=== PATIENT | female | born 1935 | race Caucasian/White ===

== ENCOUNTER 2016-09-16 17:34 | Inpatient (IN) | payer MEDICARE ==
[~2016-09-16] VITALS: Ht 31.2 cm; Wt 45.7 kg
[~2016-09-16 17:34] MED LIST: ASCORBIC ACID250 MG PO; FEOSOL-DPS325 MG PO; FIORICET DPS1 TAB PO; FLOVENT DISKUS50 MCG NS; NEURONTIN DPS300 MG PO; OCEAN NASAL MIS45 ML NS; SENOKOT S1 TAB PO; SYNTHROID DPS0.05 MG PO; TYLENOL DPS325 MG PO; ULTRAM DPS50 MG PO
--- NOTE | 2016-09-18 09:10 | ER ---
ADMIT: 09/16/2016 RM/LOC: 404 [facility] MR#: [id number] [address] [address] ANDREY PIRES [address] [place] [address] Emergency Room Report SEX: F AGE: 81 : 1935 DATE: 09/16/2016 TIME: 1734 Please refer to my T-sheet for complete H and P. HISTORY OF PRESENT ILLNESS: Briefly, the patient is an 81-year-old who comes in with general weakness for 2 to 3 days. 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 She is currently on chemotherapy. She has had a subdural bleed in the past, but she just has not been able to eat, not feeling well, and feeling chilled. PHYSICAL EXAMINATION: VITAL SIGNS: Her blood pressure is 119/53, pulse 102, respirations 21, temp 100.6. GENERAL: She is cachectic. HEENT: Pale conjunctiva. LUNGS: Clear. HEART: Regular. ABDOMEN: Soft, mildly tender. No rebound or guarding. SKIN: No rash. NEURO: She is weak, but no focal findings. EMERGENCY DEPARTMENT COURSE: We did all sepsis pathway. Gave her sepsis fluids per protocol, sent 2 blood cultures. Her chest x-ray revealed no obvious infiltrate. CBC was normal except white count 11, hemoglobin 9.6, platelets 111. Chemistries normal except potassium 3.2. Lipase was normal. UA normal. Cardiac enzymes negative. PT was 12.3, PTT 32.4, INR 1.18, lactate was 1.1. EKG was sinus rhythm, rate 96, no changes. She had some diarrhea. She did not have any here that we could send. I went ahead and gave her vancomycin and metronidazole on the sepsis protocol. I talked to Dr. Lake, she will be admitted. ASSESSMENT: 1. Fever. 2. General weakness. 3. Anorexia. 4. Oncology patient. 5. Diarrhea. 6. Early sepsis. PLAN: Admit to the hospital under the care of Dr. Lake. Tyson Kern MD/ vanessa JOB #: [id number] CC: Chelsie Hernandez MD, Attending Physician Chelsie Hernandez MD, Family Physician
--- NOTE | 2016-09-19 13:25 | HP ---
ADMIT: 09/16/2016 RM/LOC: 404 [facility] MR#: [id number] [id number] [facility] [address] [place], [place] [address] ANDREY PIRES [address] [place] [address] History and Physical SEX: F AGE: 81 : 1935 DATE OF SERVICE: CHIEF COMPLAINT: Fever and weakness. HISTORY OF PRESENT ILLNESS: The patient is an 81-year-old, white female, who presented to the emergency room with increasing weakness, fatigue, fever, shortness of breath, abdominal pain, nausea, and some diarrhea. She had a hospitalization in July for subdural hematoma, and during that stay and recovery, was noted to have a significant lymphadenopathy, and biopsy showed an adenocarcinoma likely lung primary. The patient did have some complications from that including significant swelling of the neck due to some compression of the subclavian vein. She was transferred to [facility] urgently later in July for some treatment of that and did improve somewhat. She also has known peripheral pulmonary emboli, but due to her subdural hematoma, was unable to undergo anticoagulation for that. The patient has been seeing Dr. Grimaldo here in [place] and had started receiving chemotherapy. She had some significant weakness and pancytopenia after her last round, so has not received chemo for the last week. Her counts have recovered somewhat, but unfortunately weakness continued to get worse, and she was running a fever in the ER of 100.4. She denies any real focal source. She has not had much of a cough. Diarrhea is obviously ongoing, so might be a significant source. No dysuria, but she has had some trouble emptying her bladder. No other congestion or sore throat. PAST MEDICAL HISTORY: Again, recently diagnosed with adenocarcinoma of the lung that has been metastatic, mediastinal and supraclavicular lymph nodes, and had brain metastases on MRI done at [facility]. She is undergoing palliative chemotherapy. Also, has known small peripheral pulmonary emboli, and a recent subdural hematoma, and was diagnosed with C. diff during her last hospitalization. She has had hypothyroidism and osteoporosis on a chronic basis. Otherwise, was in fairly good health until her hospitalization in July. MEDICATIONS: 1. Fluticasone nasal spray one spray in each nostril daily. 2. Ultram 50 mg q.6 hours p.r.n. 3. Levothyroxine 50 mcg daily. 4. Tylenol 325 mg 1 to 2 every 4 to 6 hours as needed. ALLERGIES: NO KNOWN DRUG ALLERGIES. FAMILY HISTORY: Father and two brothers had coronary artery disease. No other major medical issues in the family. SOCIAL HISTORY: The patient has been living at home alone since short-stay skilled care at [facility] after her last hospitalization. She does have home health care and family members who frequently check on her, but does not have a 24-hour care. She is and up until July was caring for her at home but he has been placed in skilled care unit as well. She does ADMIT: 09/16/2016 RM/LOC: 404 [facility] MR#: [id number] [address] [address] ANDREY PIRES [address] [place] [address] History and Physical SEX: F AGE: 81 : 1935 have five children. Former tobacco use history. Denies any alcohol use. REVIEW OF SYSTEMS: CONSTITUTIONAL: Just the fevers, chills, and generalized weakness. HEENT: Denies headache. No vision changes. She has chronic congestion, but no sore throat. CARDIAC: No chest pain or palpitations. RESPIRATORY: Feels a little short of breath with activity. No cough. GI: Has had some mild abdominal pain and cramping. Mild nausea and does have quite a bit of diarrhea. No blood in the stools. : Does not feel like she is emptying her bladder well but no dysuria or flank pain or hematuria. MUSCULOSKELETAL: Just feels generally weak. No joint aches or pains. Rest of the review of systems is negative. PHYSICAL EXAMINATION: VITAL SIGNS: Temp was 100.4 in the ER, it is down to 97.4 now; blood pressure 105/52; pulse 92; respirations 16; sats 95% on room air. GENERAL: The patient is alert and oriented x3 and in no acute distress. She is tired and thin and frail-appearing. HEENT: Head looks atraumatic and normocephalic. Sclerae are clear. Pupils are round and reactive. Nares are patent. Oropharynx looks moist. NECK: Supple with still some residual lymphadenopathy. HEART: Regular in rate and rhythm without murmurs. LUNGS: Sound clear to auscultation bilaterally. ABDOMEN: Soft, nondistended, nontender with good bowel sounds. No masses are palpable. EXTREMITIES: Have trace edema bilaterally. She has 2+ dorsalis pedis pulses. No skin rashes are noted. She is generally weak but no other focal neurologic deficits are noted. LABORATORY AND IMAGING DATA: White count on admission was 11.0, hemoglobin 9.6, platelets 111, and she had 57 bands. Procalcitonin was 0.27, and lactic acid was normal at 1.1. She was mildly low in potassium at 3.2, albumin is 2.2. Cardiac enzymes were negative. Chest x-ray, showed no acute change. Head CT, showed some interval resolution of the subdural hematoma, although mild increase in the size of the lateral ventricles. Her UA was also normal. ASSESSMENT: 1. Metastatic adenocarcinoma of the lung on palliative chemotherapy with some pancytopenia due to her chemo. 2. Fever with recent neutropenia. 3. Diarrhea with history of Clostridium difficile colitis. 4. Anemia. 5. Moderate protein-calorie malnutrition. 6. Generalized weakness and malaise. ADMIT: 09/16/2016 RM/LOC: [address] [place] [address] MR#: [id number] [address] [address] ANDREY PIRES [address] [place] [address] History and Physical SEX: F AGE: 81 : 1935 7. Fatigue. 8. Hypothyroidism. 9. Osteoporosis. 10.Hypokalemia. 11.Urinary retention. PLAN: We will continue with IV cefepime for now for her neutropenic fever and await cultures. We will recheck C. diff and if positive, we will resume oral vancomycin for now. We will get Social Work involved as she states she cannot handle things at home anymore and will need placement. We will get PT/OT and Speech Therapy to see her as well. We will have Oncology follow along and make any changes as needed based on her hospital course. Chelsie Hernandez MD/ vanessa JOB #: [id number] CC: Chelsie Hernandez, Attending Physician Chelsie Hernandez, Family Physician
[2016-09-25] MEDS ORDERED: FLONASE 0.05% D16 GM NS (14:01)
[2016-09-25] MEDS ORDERED: MAALOX DPS30 ML PO (14:02)
[2016-09-25] MEDS ORDERED: HYDROCODON-ACE1 EAC4 PO (14:02)
[2016-09-25] MEDS ORDERED: DELTASONE DPS5 MG PO (14:03)
[2016-09-25] MEDS ORDERED: NYSTATIN100000 UNI PO (14:04)
--- NOTE | 2016-10-12 06:29 | DS ---
ADMIT: 09/16/2016 RM/LOC: 404 [facility] MR#: [id number] [address] [address] ANDREY PIRES [address] [place] [address] General Discharge Summary SEX: F AGE: 81 : 1935 ADMISSION DATE: 09/16/2016 DISCHARGE DATE: 09/24/2016 FINAL DIAGNOSES: 1. Neutropenic fever. 2. Systemic inflammatory response syndrome criteria with possible infection as a cause. 3. Metastatic adenocarcinoma of the lung. 4. Diarrhea. 5. Anemia of chronic disease. 6. Moderate protein-calorie malnutrition. 7. Generalized weakness and malaise. 8. Fatigue. 9. Hypothyroidism. 10.Osteoporosis. 11.Hypokalemia. 12.Urinary retention. 13.Pleural effusions. REASON FOR ADMISSION: The patient is an 81-year-old white female, who has been undergoing chemotherapy for metastatic adenocarcinoma of the lung. She had developed some low white blood cell counts and had received medications appropriately for that through Oncology, but in the mean time, did develop some increasing weakness and spiked a temp of 100.4. She came to the emergency room and was admitted on IV cefepime pain. Did have a mildly elevated white count on admission that was up to 11,000. Her hemoglobin on admission was 9.6 and procalcitonin was 0.27. Lactic acid was normal at 1.1. HOSPITAL COURSE: The patient was admitted and did receive IV fluids for the first couple of days until urine output improved. She was also started on some IV Decadron. PT, OT, and Speech Therapy saw her along with Supportive Care and Oncology. On admission, she had complained of some diarrhea, but really did not have any significant issues with that during her stay and we were unable to get a loose sample to test for C. diff, which she had, had during a prior hospitalization. She did not spike any more fevers, but had an increasing white count. Did gradually feel better, however, and blood cultures ultimately came back negative. She had some intermittent urinary retention and required a Javier catheter for a couple of days. With all the fluids, she ended up third-spacing some of that fluid in her lungs and underwent a thoracentesis on 09/20, removing 350 mL from the right lung. Cultures on that came back negative. She was diuresed with IV Lasix and did well with that and her weight came back down to baseline, and chest x-ray improved. Nutrition did see her and placed her on a pureed diet and nectar thickened liquids as she was fatiguing during meals and had a cough. She remained stable through the weekend and was felt safe to discharge to skilled care on 09/24/2016. DISCHARGE INSTRUCTIONS: The patient will be discharged to [facility]. ADMIT: 09/16/2016 RM/LOC: 404 [facility] MR#: [id number] 26[address] [place] [id number] PAMELA PIRESN [address] [place] [address] General Discharge Summary SEX: F AGE: 81 : 1935 DISCHARGE MEDICATIONS: Include: 1. Synthroid 50 mcg daily. 2. Flonase 1 spray in each nostril daily. 3. Hydrocodone with acetaminophen 5/325 one to two every 4-6 hours as needed p.r.n. 4. Maalox 30 mL q.6 hours p.r.n. 5. Tylenol 650 mg q.4-6 hours p.r.n. 6. Ultram 50 mg q.6 hours p.r.n. 7. Prednisone taper starting at 30 mg daily and tapering off over the next 9 days. 8. She will also have nystatin suspension, some mild thrush she was developing 1 teaspoon q.i.d. for 7 days. FOLLOWUP: She has an appointment with Oncology on 09/27 and she will keep that, will see me back as needed. Chelsie Hernandez MD/ vanessa JOB #: [id number] CC: Chelsie Hernandez MD, Attending Physician Chelsie Hernandez MD, Family Physician
--- NOTE | 2016-10-12 08:44 | CO ---
ADMIT: 09/16/2016 RM/LOC: 404 [facility] MR#: [id number] [address] [address] ANDREY PIRES [address] [place] [address] Consultation SEX: F AGE: 81 : 1935 DATE OF CONSULTATION: 09/19/2016 ATTENDING PHYSICIAN: Chelsie Hernandez CONSULTING PHYSICIAN: Rhiannon Aguilar MD REASON FOR CONSULTATION: Pleural effusions. HISTORY OF PRESENT ILLNESS: The patient is a pleasant 81-year-old female with a history of metastatic adenocarcinoma, presumed lung, has been on chemotherapy recently and admitted with neutropenic fever. Today, CT scan of the chest was performed, which showed moderate bilateral pleural effusions. This has not been known prior to this time. In addition, there is no history of congestive heart failure. She has dyspnea and cough but no chest pain. She is improving from her initial admission workup. CT scan of the chest did not reveal any mediastinal or hilar adenopathy or any lung masses. She was admitted initially with fever and weakness. PAST MEDICAL HISTORY: Includes adenocarcinoma of the lung; metastatic mediastinal supraclavicular nodes; brain METS on MRI at [facility], on palliative chemotherapy; history of small peripheral pulmonary emboli; recent subdural hematoma; c. diff; hypothyroidism; osteoporosis. MEDICATIONS: At home were: 1. Tylenol. 2. Levothyroxine. 3. Ultram. 4. Fluticasone. ALLERGIES: NONE. FAMILY HISTORY: Father and two brothers with coronary artery disease. SOCIAL HISTORY: Reviewed. REVIEW OF SYSTEMS: Twelve point noncontributory except the HPI, positive shortness of breath. PHYSICAL EXAMINATION: VITAL SIGNS: Temp was 100.4, now normal; blood pressure was 100/70; pulse 92; respirations 16; sat 95% on room air. HEENT: Within normal limits. NECK: No JVD or bruits. HEART: Regular rate. LUNGS: Decreased breath sound at bases. Otherwise clear. ABDOMEN: Soft. No organosplenomegaly. EXTREMITIES: Show no cyanosis, clubbing, edema, or tenderness. GENITORECTAL: Deferred. NEUROLOGICAL: Intact. ADMIT: 09/16/2016 RM/LOC: 404 [facility] MR#: [id number] [address] [address] ANDREY PIRES [address] [place] [address] Consultation SEX: F AGE: 81 : 1935 LABORATORY DATA: Basic metabolic panel today is reviewed. Serum bicarb 17, BUN 12, creatinine 0.6, magnesium 1.7. ProBNP is 589. CBC reveals white count of 21,600, hemoglobin 10.1, and platelets 266. Chest CT and ultrasound reviewed. IMPRESSION: 1. Moderate bilateral pleural effusions. These are most likely secondary to fluid overload. She has been receiving substantial amount of intravenous fluids since admission appropriately because of sepsis and neutropenic fever. I am going to stop her IV fluids and give Lasix 40 mg IV and see if she has response, have her take 2-3 days for her to improve, then consider thoracentesis if not improved. 2. Neutropenic fever, improving. 3. History of metastatic adenocarcinoma of the lung. 4. History of subdural hematoma. Thank you for letting me me see her. Rhiannon Aguilar MD/ vanessa JOB #: [id number] CC: Chelsie Hernandez, Attending Physician Chelsie Hernandez, Family Physician
[2016-10-18] MEDS ORDERED: DUONEB DPS3 ML IH (13:36)
[2016-10-18] MEDS ORDERED: DURAGESIC1 EAC2 TD (13:38)
[2016-10-18] MEDS ORDERED: IMODIUM DPS2 MG PO (13:39)
== END 2016-09-24 13:10 | DRG 809 ==
LOC: ER 17:34 → 4PCU 19:50
PROVIDERS: ADMIT Family Medicine
PROC: 0W993ZX Drainage of Right Pleural Cavity, Percutaneous Approach, Diagnostic (ICD-10-PCS; principal; 2016-09-21)
DX: D70.9 Neutropenia, unspecified (principal); C79.31 Secondary malignant neoplasm of brain; J91.8 Pleural effusion in other conditions classified elsewhere; E44.0 Moderate protein-calorie malnutrition; C77.1 Secondary and unspecified malignant neoplasm of intrathoracic lymph nodes; R50.81 Fever presenting with conditions classified elsewhere; C34.90 Malignant neoplasm of unspecified part of unspecified bronchus or lung; D61.810 Antineoplastic chemotherapy induced pancytopenia; R19.7 Diarrhea, unspecified; R33.9 Retention of urine, unspecified; E87.6 Hypokalemia; E03.9 Hypothyroidism, unspecified; M81.0 Age-related osteoporosis without current pathological fracture; Z82.49 Family history of ischemic heart disease and other diseases of the circulatory system; Z87.891 Personal history of nicotine dependence; Z66 Do not resuscitate

== ENCOUNTER 2016-10-16 16:06 | Inpatient (IN) | payer MEDICARE ==
[~2016-10-16] VITALS: Ht 152.4 cm; Wt 46.0 kg
--- NOTE | ~2016-10-16 | FD ---
ADMIT: 10/16/2016 RM/LOC: 303 [facility] MR#: [id number] [address] [address] ANDREY PIRES [address] [address] Final Diagnosis SEX: F AGE: 81 : 1935 ADMISSION DATE: 10/16/2016 DISCHARGE DATE: 10/17/2016 FINAL DIAGNOSIS: 1. Acute hypoxic respiratory failure. 2. Sepsis secondary to right middle lobe pneumonia. 3. Stage IV metastatic adenocarcinoma of the lung with brain mets (metastasis). 4. Malnutrition. 5. History of hypertension. HOSPITAL COURSE: The patient was admitted on 10/16/2016 for acute hypoxic respiratory failure. She was put in the ICU where she required pressors to maintain her blood pressure. She was found to have a right middle lobe pneumonia and was started on Levaquin and Zosyn. After much discussion with the patient and help from supportive care, it was decided that patient would go on hospice. She had been taking palliative chemo but stopped that approximately 3 weeks prior to her admission. The patient was discharged on 10/17/2016 to [facility] with [facility] for hospice care. Paige Oliva DO Resident / Chelsie Hernandez MD / dayday JOB #: [id number] CC: Chelsie Hernandez MD, Attending Physician Chelsie Hernandez MD, Family Physician
[~2016-10-16 16:06] MED LIST changes: +DELTASONE DPS5 MG PO; +FLONASE 0.05% D16 GM NS; +HYDROCODON-ACE1 EAC4 PO; +MAALOX DPS30 ML PO; +NYSTATIN100000 UNI PO
--- NOTE | 2016-10-17 16:02 | CO ---
ADMIT: 10/16/2016 RM/LOC: 303 [facility] MR#: [id number] [address] [address] ANDREY PIRES [address] [address] Consultation SEX: F AGE: 81 : 1935 DATE OF CONSULTATION: 10/17/2016 ATTENDING PHYSICIAN: Chelsie Hernandez MD CONSULTING PHYSICIAN: Reginaldo Ruelas MD HISTORY OF PRESENT ILLNESS: Ms. Pires is a very pleasant, unfortunate, 81- year-old, white female, former smoker, with most recent history significant for diagnosis of metastatic adenocarcinoma. She has stage IV disease, with brain metastases, and has been receiving palliative chemotherapy, the last of which was given about three weeks ago. She currently is living at [facility], and was admitted to the hospital on 10/16/2016 with increasing shortness of breath, hypotension, and worsening hypoxemia. In the Emergency Department, labs and x-rays were evaluated. She was noted to have mildly elevated white blood cell count of 12.5, lactic acidosis with a level of 3.5. Chest x-ray was suggestive of right middle lobe pneumonia. She was given fluid resuscitation. Started on Zosyn and Levaquin. She was transferred to the intensive care unit, because of acute severe sepsis and need for pressor agents. Seen in consultation. At the time she was seen, she was a bit more stable than on admission. Overall not feeling well, but no specific complaints. She is not having significant amount of cough and not having hemoptysis. It was noted during the night that she did go into atrial fibrillation with rapid ventricular rate. PAST MEDICAL HISTORY: Significant for metastatic adenocarcinoma of lung with brain metastases (stage IV), and recently had been receiving palliative chemotherapy. She has history of pulmonary embolism. She had previous history of subdural hematoma. Also, she had previous history in [place] of Clostridium difficile enterocolitis. She has hypothyroidism, and osteoporosis. ALLERGIES: SHE HAS NO KNOWN MEDICAL ALLERGIES. MEDICATIONS: Home medications are reviewed in electronic medical record, include: 1. Fentanyl patch 12.5 mcg/hour every 72 hours. 2. Flonase daily. 3. Hydrocodone 5/325 p.r.n. 4. Synthroid 50 mcg daily. 5. Ultram 50 mg every 6 hours as needed. SOCIAL HISTORY: Former smoker. Currently living at [facility]. FAMILY HISTORY: Coronary artery disease in two of her brothers and her father. ADMIT: 10/16/2016 RM/LOC: 303 [facility] MR#: [id number] [address] [address] PRANAY ANDREY [address] [place] [address] Consultation SEX: F AGE: 81 : 1935 REVIEW OF SYSTEMS: As above. A 12-point review of system performed, significant positives and negatives discussed above. PHYSICAL EXAMINATION: VITAL SIGNS: She was currently afebrile, in fact hypothermic with temperature of 96.1. Blood pressure 120/46. Pulse 106. Oxygen saturation 98% currently on 2 L supplemental oxygen. GENERAL: She appeared chronically ill in mild amount of respiratory discomfort. HEENT: Pupils equal and reactive. Nares patent. Posterior hypopharynx is clear. NECK: Supple without adenopathy. CHEST: Revealed bilateral rhonchi. Some localized wheezes were noted on the right side. Heart: Tachycardic. Irregular. ABDOMEN: Thin, soft, nondistended, nontender. No organomegaly or masses noted. EXTREMITIES: With trace of peripheral edema. She has significant muscle atrophy with generalized weakness, but no focal neurologic findings. LABORATORY AND X-RAY DATA: Reviewed. ASSESSMENT: 1. She is admitted with acute severe sepsis, most likely secondary to an acute right middle lobe pneumonia. She has been appropriately started on IV antibiotics with Levaquin and Zosyn. 2. She has acute hypoxic respiratory failure secondary to the pneumonia, though seemingly having adequate saturations on only 2 L of supplemental oxygen. 3. She has a right middle lobe pneumonia as mentioned above. 4. She has metastatic stage IV non-small cell lung cancer with brain metastases, previously been receiving palliative chemotherapy. ADMIT: 10/16/2016 RM/LOC: 303 [facility] MR#: [id number] [address] [address] ANDREY PIRES [address] [place] [address] Consultation SEX: F AGE: 81 : 1935 5. She has anemia of disease. 6. She has previous history of pulmonary embolism. 7. She has severe malnutrition. 8. She has hypothyroidism. PLAN: She is stabilized from admission, and has now made the decision that she wants to go to the hospice care. Her long-term prognosis is extremely poor and I would agree with transition to hospice care. She is aware that she has incurable disease, and is comfortable in that decision. We will contact palliative care and help arrange for hospice. We will otherwise continue to follow here while she is in the hospital further recommendations following evaluation of response to treatments and therapies. Reginaldo Ruelas MD/ vanessa JOB #: [id number] CC: Chelsie Hernandez MD, Attending Physician Chelsie Hernandez MD, Family Physician
[2016-10-18] MEDS ORDERED: DUONEB DPS3 ML IH (13:36)
[2016-10-18] MEDS ORDERED: DURAGESIC1 EAC2 TD (13:38)
[2016-10-18] MEDS ORDERED: IMODIUM DPS2 MG PO (13:39)
--- NOTE | 2016-10-21 21:52 | ER ---
ADMIT: 10/16/2016 RM/LOC: 303 [facility] MR#: [id number] [address] [address] ANDREY PIRES [address] [place] [address] Emergency Room Report SEX: F AGE: 81 : 1935 DATE: 10/16/2016 See T-sheet for complete H and P. ADDENDUM: An 81-year-old female, comes from [facility] with complaints of low oxygen saturations and some shortness of breath. She does have a history of fairly recent diagnosis of adenocarcinoma of the lung with metastasis to lymph nodes, bone, and possibly brain. Per EMS, her oxygen saturations were 75% at the facility, and she does not normally wear oxygen. She is on 100% non-rebreather and sent her to us. At that time, she got up, her sats were in the 90s, but she did seem somewhat listless. She had no specific complaints of pain and did not say she was short of breath. We went ahead and did our sepsis routine on the patient, which showed that she has a white count of 12.5, hemoglobin of 8.7, platelets of 218. Chemistries were unremarkable. Lactic acid was 3.8. Her ABG on non-rebreather with a pH of 7.4, pCO2 of 32, and a PO2 of 259. EKG showed what could be a right-sided opacity/infiltrates. Her EKG showed a sinus rhythm with rate of 96 here. I did begin some fluid hydration on the patient and because she started having some low MAPs, I did initiate our 30 mL/kg fluid resuscitation. At this point, I do not believe that the patient is stable enough to be discharged home and we will bring her in the hospital, and she was given her first dose of IV antibiotics in the Emergency Department. I spoke to Dr. Stapleton, who is on for the patient's primary care physician, and we will be admitting the patient with the; DIAGNOSES: 1. Metastatic lung cancer. 2. Anemia. 3. Shortness of breath. 4. Lactic acidosis. Eduardo Saavedra MD/ vanessa JOB #: [id number] CC: Chelsie Hernandez MD, Attending Physician Chelsie Hernandez MD, Family Physician
--- NOTE | 2016-10-22 07:17 | CO ---
ADMIT: 10/16/2016 RM/LOC: [facility] MR#: [id number] [address] [id number] ANDREY MAGALLON [address] [address] Consultation SEX: F AGE: 81 : 1935 DATE OF CONSULTATION: 10/17/2016 ATTENDING PHYSICIAN: Chelsie Hernandez MD CONSULTING PHYSICIAN: Bj Mauro MD LOCATION OF SERVICE: [facility]. REASON FOR CONSULTATION: Dr. Hernandez has requested our consultation for dianetic counselor and coordination of care. HISTORY OF PRESENT ILLNESS: This is a pleasant 81-year-old elderly female with a history of recent diagnosis of lung adenocarcinoma with metastatic disease to her brain, she was originally diagnosed in July of 2016. She was brought into the Emergency Department on 10/16/2016 with dyspnea over the last couple days. She did have a recent hospitalization here at [facility] for a neutropenic fever, SIRS. She does follow with Dr. Grimaldo for her Oncology needs and has received palliative chemotherapy in the past. She has currently been living at [facility] and she was transferred here as mentioned above to our Emergency Department with shortness of breath as her oxygen saturation was found to be 70% on room air. Supplemental oxygen was given with 2 L/minute per nasal cannula. Her lactic acid was found to be 3.5. White count 12.5. X-ray was concerning for right middle lobe pneumonia. Antibiotic therapy has been started. The patient has discussed with the medical team her desire for no further chemotherapy and request comfort plan of care. We were asked to review goals and options of care at this time. Current functional status reflects a palliative performance score of 20. She is bed bound, unable to do any work, needing total cares, her intake is to minimal sips. She is fully alert and oriented x3 at this time. Prior to admission, her functional status reflects a palliative performance score of around 40 to 50. She spends most time in bed or in the chair, unable to do any work, needing assistance with all cares. Her intake is reduced. Her conscious level has been full. PAST MEDICAL HISTORY: 1. 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 Does follow with Dr. Grimaldo and has had palliative chemotherapy in the past. Original diagnosis was in July of 2016. 2. She was admitted in September of 2016 for neutropenic fever. 3. Pulmonary embolism. 4. Subdural hematoma. No anticoagulation has been in place due to this. 5. Paroxysmal atrial fibrillation. No anticoagulation secondary to history of subdural hematoma. 6. History of C. difficile colitis in July. 7. Hypothyroidism. 8. Osteoporosis. PAST SURGICAL HISTORY: None. ADMIT: 10/16/2016 RM/LOC: [address] [facility] MR#: [id number] [address] [address] ANDREY MAGALLON [address] [place] [address] Consultation SEX: F AGE: 81 : 1935 ADVANCED DIRECTIVE AND CODE STATUS: She is a do not resuscitate/do not intubate status with her healthcare [id number]-ssufvbro as her daughter, Federica Johnson, at [phone]. SOCIAL HISTORY: She lives in [facility]. She is . She is Nondenominational. There is no reports of alcohol or illicit drug use. She does have a history of tobacco abuse. She does not identify any cultural needs at this time. FAMILY HISTORY: Reviewed and noncontributory. CURRENT MEDICATIONS: 1. Levaquin. 2. Duragesic 12 mcg. 3. Amiodarone. 4. Synthroid. 5. Zosyn. 6. Heparin. 7. Ultram. 8. Maalox. 9. Imodium. 10.Orchard. 11.Solu-Medrol. 12.DuoNeb. 13.Tylenol. ALLERGIES: NO KNOWN DRUG ALLERGIES. REVIEW OF SYSTEMS: A 10-point review of systems was conducted, was otherwise unremarkable except as noted in HPI and PMH. She reports her pain is well controlled with her Duragesic patch. She reports her dyspnea is improved with supplemental oxygen at this time. She does report dyspnea increasing with activity. She denies anxiety, nausea, vomiting, or constipation at this time. PHYSICAL EXAMINATION: CONSTITUTIONAL: Weight is 101 pounds. Please see medical record for height and BMI. GENERAL STATUS: This is a pleasant elderly female, in no acute distress. Alert and oriented, able to participate fully in consultation. VITAL SIGNS and CODE STATUS: She is a do not resuscitate/do not intubate status with temperature of 96.7, heart rate 91, respiratory rate 16, blood pressure 116/48. She is on 2 L of oxygen per nasal cannula, oxygenating at 100%. HEENT: Head is normocephalic, atraumatic. She is not wearing glasses. Pupils are 3 mm, PERRLA. Hearing is intact bilaterally. Oral mucosa is dry. Dentition is worn. Anicteric sclerae. Conjunctiva is pale. NECK: No lymphadenopathy. Trachea is midline. Supple. No JVD. RESPIRATORY: Respirations are regular without distress. Lung sounds are ADMIT: 10/16/2016 RM/LOC: [address] [facility] MR#: [id number] [address] [place] [phone] ANDREY MAGALLON [address] [place] [address] Consultation SEX: F AGE: 81 : 1935 diminished bilaterally and regular. CARDIOVASCULAR: Rate and rhythm are irregularly irregular. I do not auscultate any rubs, murmurs, clicks, or gallops. GASTROINTESTINAL: Abdomen is soft, flat, nontender and nondistended. Positive bowel sounds in all 4 quadrants. EXTREMITIES: Upper and lower extremities are free of cyanosis or clubbing. She does have edema. INTEGUMENTARY: Skin temperature is warm. Skin is intact. MUSCULOSKELETAL: Free of joint deformities. She does have generalized weakness. NEUROLOGICAL: Alert and oriented x3. She does follow commands. PSYCHIATRIC: Affect is flat. Insight is intact. She is cooperative with cares. DIAGNOSTIC DATA: Laboratory work reveals sodium 145, potassium 4.1, chloride 114, glucose 174, creatinine 0.8. Troponin 4.6, albumin 1.8. WBCs 13.6, hemoglobin 7.2, hematocrit 22.7, platelets 205. RADIOLOGY: Blood cultures are pending at this time. Respiratory pathogen panel has been negative. Radiology reports have been reviewed. Please see EMR for details. IMPRESSION AND PLAN: 1. Physical debility. 2. Fatigue. 3. Chronic pain. 4. Constipation. 5. Severe protein-calorie malnutrition with an albumin of 1.8. 6. Dyspnea. 7. Metastatic lung adenocarcinoma to brain. Follows with Dr. Grimaldo. Status post palliative chemotherapy. 8. Paroxysmal atrial fibrillation. No anticoagulation secondary history of subdural hematoma. 9. History of pulmonary emboli. 10.Acute hypoxic respiratory failure. 11.Sepsis. 12.Pneumonia. 13.Hypertension. 14.Anemia. 15.Hypothyroidism. 16.Do not resuscitate/do not intubate status. Symptoms are currently controlled. I did review goals and options of care at length with Mrs. Magallon at the bedside. She verbalizes understanding and she clearly states that her No.1 goal is comfort and a natural . We did review code status options, full code versus do not resuscitate/do not intubate status with benefits versus burdens, and she does confirm a do not resuscitate/do not intubate status at this time. We reviewed all options of care including hospice care. The patient directs to start hospice care at her nursing facility and does anticipate discharge today or tomorrow. Cristofer, her ADMIT: 10/16/2016 RM/LOC: [address] [facility] MR#: [id number] [address] [place] [id number] ANDREY MAGALLON K [address] [place] [address] Consultation SEX: F AGE: 81 : 1935 son, second healthcare [id number], did arrive at the bedside and did discuss these directives with his mother and does support her decision to transfer into hospice care at her nursing facility. I have placed a call out to daughter, healthcare eoori-de-vxovmwlr Federica Johnson, and I await her availability. I have discussed the discharge plan with nursing and Social Work and I have updated Dr. Hernandez with the patient's directive of initiating hospice on discharge back at [facility]. Much support and dianetic counselor given at this time. Mrs. Magallon is clear that she wants no further chemotherapy or intervention for her cancer and that her No.1 goal is comfort, dignity, and a natural . Mrs. Magallon was seen in collaboration with Dr. Bj Mauro, who agrees with assessment, discussion, and plan. I would like to thank Dr. Hernandez for the invitation to participate in Mrs. Magallon' hospital course. Total consultation time was from 0900 hours to 0941 hours on 10/17/2016 by the Palliative Medicine EKG TECH. Greater than 50% of this time was spent at the bedside in dianetic counselor and coordination of care. Amanda Nielsen APRN / Bj Mauro MD / vanessa JOB #: [id number] CC: Chelsie Hernandez MD, Attending Physician Chelsie Hernandez MD, Family Physician
--- NOTE | 2016-10-25 09:09 | HP ---
ADMIT: 10/16/2016 RM/LOC: 303 [facility] MR#: [id number] [address] [address] ANDREY PIRES [address] [place] [address] History and Physical SEX: F AGE: 81 : 1935 DATE OF SERVICE: CHIEF COMPLAINT: Shortness of breath and altered mental status. HISTORY OF PRESENT ILLNESS: This is an 81-year-old female with past medical history significant for recent diagnosis of lung adenocarcinoma (diagnosed in July of 2016) with metastasis to the brain (recently stopped palliative chemo), history of PE, history of C. difficile colitis, hypothyroidism, history of subdural bleed, and osteoporosis, who was brought to the Emergency Department for hypoxia and shortness of breath. The patient states that the shortness of breath has been getting progressively worse the last couple of days. She has noted some mild sputum production and is also complaining of all over body aches. She has not had any fevers that she is aware of. The patient is currently living at [facility] and was found to be saturating 70% on room air this afternoon. Her vitals on arrival to the emergency department were blood pressure of 103/56 with a MAP of 67, pulse of 91, respirations of 20, temp of 97.2, saturating 98% on 15 L on a non- rebreather mask. Her ABG was found to be fairly unremarkable, but her labs were significant for lactic acid of 3.5 and a white count of 12.5. Her chest x-ray was concerning for right middle lobe pneumonia. In the ER, she was started on Levaquin and given 30 mL/kilos of IV fluids with no improvement in her blood pressure readings. PAST MEDICAL HISTORY: 1. 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 She recently started palliative chemo. 2. She was last admitted in September for neutropenic fever. 3. History of pulmonary embolism. 4. History of subdural hematoma. 5. History of C. difficile colitis in July. 6. Hypothyroidism. 7. Osteoporosis. PAST SURGICAL HISTORY: None. MEDICATIONS: [facility]: 1. Fentanyl patch 12 mcg/hour, apply one patch transdermally every 72 hours. 2. Flonase 1 spray both nostrils once daily. 3. Hydrocodone/acetaminophen 5/325, two tablets by mouth every 4 hours as needed for breakthrough pain. 4. Loperamide 2 mg by mouth every 6 hours as needed for loose stools. 5. Maalox 30 mL by mouth every 6 hours as needed. 6. Synthroid 50 mcg once daily. 7. Tylenol 325 mg, give 2 tabs every 4 hours as needed for pain. 8. Ultram 50 mg by mouth every 6 hours as needed for pain. ALLERGIES: NONE. SOCIAL HISTORY: She is currently living at [facility]. Her ADMIT: 10/16/2016 RM/LOC: [address] [facility] MR#: [id number] [address] [place] [phone] ANDREY PIRES [address] [place] [address] History and Physical SEX: F AGE: 81 : 1935 is on 5th floor of the hospital right now as well recovering from an illness. She does have a history of tobacco abuse, but denies any alcohol or illegal drug use. FAMILY HISTORY: Coronary artery disease in her dad and two brothers. REVIEW OF SYSTEMS: A 10-point review of systems was reviewed and negative other than that stated above in the HPI. PHYSICAL EXAMINATION: VITAL SIGNS: Blood pressure 78/44, pulse 94, respirations 16, temp 97.2, saturating 100% on 2 L. GENERAL: She is sleepy, but arousable. HEENT: Show dry mucous membranes. HEART: Regular rate and rhythm. No murmurs. LUNGS: Decreased throughout. ABDOMEN: Scaphoid, tender to palpation. EXTREMITIES: Trace edema. LABS: Sodium 144, potassium 4.1, creatinine 0.8, glucose 145, white count 12.5, hemoglobin 8.7. Procalcitonin 0.17. Alkaline phosphatase 158, lactic acid 3.5, magnesium 2.1. ABG showed a pH of 7.44, pCO2 of 32.1. Bicarb of 21.5 and a PO2 of 256. CK was 18, MB was 1.3. Troponin 0.042. Chest x-ray shows possible right middle lobe pneumonia. EKG shows normal sinus rhythm. ASSESSMENT AND PLAN: 1. Hypoxic respiratory failure. She is currently holding her sats in the upper 90s on 2 L. I will check a D-dimer due to her history of pulmonary embolism and no anticoagulation medications on her med list. 2. Sepsis. She is currently getting Zosyn and Levaquin as well as Levophed and IV fluids. 3. Right middle lobe pneumonia, again on IV Zosyn and Levaquin. 4. Hypertension. She has received 30 mL/kilos bolus of IV fluids as called from the sepsis protocol. Her blood pressures did not respond to that, ADMIT: 10/16/2016 RM/LOC: [address] [facility] MR#: [id number] [facility] [address] [address] ANDREY PIRES [address] [place] [address] History and Physical SEX: F AGE: 81 : 1935 so we have started her on a Levophed drip per protocol and we will increase her IV fluids to 175 an hour. I did consult Critical Care as well. 5. Metastatic adenocarcinoma of the lung. I consulted Supportive Care to discuss the goals of care going forward. We will also consult Oncology, although I do understand that she recently stopped her palliative chemo. 6. Malnutrition: We will get a Nutrition consult. 7. Anemia. We will plan to monitor this. 8. Elevated troponin. I will plan to trend this, although likely secondary to sepsis. 9. History of pulmonary embolism. 10.DNR/DNI. 11.Hypothyroidism: Continue her home medication. Paige Oliva DO Resident / Chelsie Hernandez MD / modl JOB #: [id number] CC: Chelsie Hernandez, Attending Physician Chelsie Hernandez, Family Physician
--- NOTE | 2016-11-12 15:04 | CO ---
ADMIT: 10/16/2016 RM/LOC: 303 [facility] MR#: [id number] [address] [id number] LULA PIRES [address] [place] [address] Consultation SEX: F AGE: 81 : 1935 DATE OF CONSULTATION: 10/17/2016 ATTENDING PHYSICIAN: Chelsie Hernandez CONSULTING PHYSICIAN: Raza Soliman MD REASON FOR CONSULTATION: Atrial fibrillation. HISTORY OF PRESENT ILLNESS: We were asked to consult on [place] at the request of Dr. Hernandez for the problem of atrial fibrillation. She is a pleasant 81- year-old, white female, who admitted with some shortness of breath on the . She also had some altered mental status. She was started on Levaquin for presumed middle lobe pneumonia. Currently, she is denying any palpitations, skipped beats. She has constant lightheadedness, nothing out of the ordinary. Denies any chest pain, pressure, or tightness. MEDICAL HISTORY: 1. Metastatic adenocarcinoma of the lung with brain mets. 2. History of neutropenic fever in September of this year. 3. History of PE. 4. History of subdural hematoma in July of this year. 5. History of C. diff colitis in July of this year. 6. Hypothyroidism. 7. Osteoporosis. MEDICATIONS: Include: 1. Fentanyl patch. 2. Flonase. 3. Hydrocodone. 4. Acetaminophen. 5. Loperamide. 6. Maalox. 7. Synthroid. 8. Tylenol. 9. Ultram. ALLERGIES: NONE. SOCIAL HISTORY: Lives at [place]. is currently hospitalized. Prior smoker, nondrinker. FAMILY HISTORY: Coronary artery disease in two brothers and father. REVIEW OF SYSTEMS: A full 10-point review of systems was obtained and deemed to be negative except per the pertinently dictated positives in the HPI. PHYSICAL EXAMINATION: VITAL SIGNS: Her blood pressure is 116/48, with a pulse of 90, temp is 96.7. Her weight is 101. GENERAL: She is a pleasant, well-nourished, and well-developed white female, ADMIT: 10/16/2016 RM/LOC: 303 [facility] MR#: [id number] 26[address] [facility] [address] [place] [phone] LULA PIRES [address] [place] [address] Consultation SEX: F AGE: 81 : 1935 in no acute distress. Alert and oriented x3. NECK: Shows brisk carotid upstrokes. No JVD or bruit. CHEST: Clear. HEART: Regular. ABDOMEN: Soft. EXTREMITIES: No cyanosis, clubbing, edema. MUSCULOSKELETAL: Normal. NEUROLOGIC: Normal. SKIN: [place], warm, and dry. LABORATORY AND X-RAY DATA: Laboratory and ancillary data shows a potassium of 4.1, creatinine 0.8, magnesium of 2.1. CK is 18, MB is 1.3. Troponin 0.041. White blood cell count of 13.6 with a hemoglobin of 7.2, her platelet count is 205,000. EKG on admission shows sinus rhythm. EKG last night or early this morning with atrial fibrillation, SVT. EKG this morning shows return to sinus rhythm. ASSESSMENT AND PLAN: 1. Paroxysmal atrial fibrillation. 2. Metastatic adenocarcinoma of the lung. 3. History of subdural hematoma. 4. History of pulmonary embolism. 5. Dyspnea. 6. Anemia. We will continue with the amiodarone drip. There is no need for anticoagulation because of the secondary recent history of subdural hematoma earlier this year. Lytes are normal. We will hold off on the echocardiogram as the patient is planning hospice. Raza Soliman MD/ vanessa JOB #: [id number] CC: Chelsie Hernandez, Attending Physician Chelsie Hernandez, Family Physician
== END 2016-10-17 12:35 | disposition short-term general hospital (02) | DRG 871 ==
LOC: ER 16:06 → 3ICU 19:00
PROVIDERS: ADMIT Family Medicine
DX: A41.9 Sepsis, unspecified organism (principal); R65.21 Severe sepsis with septic shock; J96.01 Acute respiratory failure with hypoxia; Z51.5 Encounter for palliative care; E43 Unspecified severe protein-calorie malnutrition; J18.9 Pneumonia, unspecified organism; C77.9 Secondary and unspecified malignant neoplasm of lymph node, unspecified; C79.51 Secondary malignant neoplasm of bone; E87.2 Acidosis; C79.31 Secondary malignant neoplasm of brain; C34.90 Malignant neoplasm of unspecified part of unspecified bronchus or lung; D63.0 Anemia in neoplastic disease; I48.0 Paroxysmal atrial fibrillation; M81.0 Age-related osteoporosis without current pathological fracture; I10 Essential (primary) hypertension; E03.9 Hypothyroidism, unspecified; Z86.711 Personal history of pulmonary embolism; Z79.01 Long term (current) use of anticoagulants; Z86.79 Personal history of other diseases of the circulatory system; Z87.891 Personal history of nicotine dependence; Z82.49 Family history of ischemic heart disease and other diseases of the circulatory system; Z66 Do not resuscitate